=== PATIENT | male | born 1965 | race African-American/Black ===

== ENCOUNTER → 2017-03-06 | Outpatient (CLI) | payer OTHER ==
--- NOTE | 2017-03-06 11:25 | Diagnostic Imaging Report ---
PROCEDURE: MRI lumbar spine. TECHNIQUE: Multiplanar, multisequence MRI of the lumbar spine was performed without contrast. INDICATION: Back pain. The previous MRI lumbar spine exam performed on 08/23/2004, noted degenerative disc disease at L5-S1 with moderate narrowing of the neural foramen on the left. On this study the disc bulge centrally at the L5-S1 level is perhaps slightly greater than on the prior exam. The disc indents the ventral aspect of the thecal sac and narrows the AP diameter to approximately 11.6 mm. On the prior exam the AP diameter of the thecal sac measured 12.6 mm. There is still at least moderate narrowing of the neural foramina bilaterally at this level. The other intervertebral spaces are fairly well maintained; however, there is now a focal small disc protrusion to the right at L2-L3. The disc compresses the right ventral aspect of the thecal sac resulting in mild central stenosis. The disc is also in proximity to the exiting right nerve root at this level. The remainder of the lumbar spine is unremarkable for spinal stenosis or nerve root encroachment. There is no abnormal signal arising from the cord or the vertebral bodies to indicate an acute abnormality. There is no sign of a cord lesion. IMPRESSION: 1. The degenerative disc and bony disease at the L5-S1 level seen previously does not appear to have progressed. There is still no evidence for central stenosis at this level, but there is narrowing of the neural foramina bilaterally. 2. There is now a new focal disc bulge to the right at L2-L3. The disc compresses the right ventral aspect of the thecal sac resulting in mild central stenosis. The disc is also in close proximity to the exiting right nerve root. 3. The remainder of the lumbar spine is unremarkable for spinal stenosis or nerve root encroachment. 4. There is no acute bony abnormality noted, and there is no sign of a cord lesion. Dictated by: Dictated on workstation # [id number]
--- NOTE | 2017-03-06 11:28 | Diagnostic Imaging Report ---
MRI of the thoracic spine without contrast. INDICATION: Back pain. Multiplanar images utilizing both T1- and T2-weighted sequences were obtained. There are no previous MRI thoracic spine examinations available for comparison. The previous MRI lumbar spine exam of 08/23/2004, did show degenerative disc and bony disease at the T12-L1 level. On this exam there is still a disc bulge eccentric to the left at this level. The disc compresses the left ventral aspect of the thecal sac but does not produce spinal stenosis. There is mild narrowing of the neural foramen on the left however. The remainder of the thoracic spine is unremarkable for spinal stenosis or nerve root encroachment. There is no abnormal signal arising from the cord or the vertebral bodies to indicate an acute abnormality. There is no sign of a paraspinal mass. IMPRESSION: 1. The mild disc bulge to the left at T12-L1 noted previously is again evident. There is still no evidence for a central stenosis at this level although there is narrowing of the neural foramen on the left. 2. The remainder of the thoracic spine is unremarkable for spinal stenosis or nerve root encroachment. 3. There is no sign of an acute bony abnormality or of a cord lesion. Dictated by: Dictated on workstation # [id number]
== END ==
LOC: RAD 01-30 08:04
PROVIDERS: ATTEND Family Medicine
DX: M51.37 Other intervertebral disc degeneration, lumbosacral region (principal); M51.26 Other intervertebral disc displacement, lumbar region; M54.6 Pain in thoracic spine
CPT/HCPCS: 72146; 72148

== ENCOUNTER 2017-06-19 09:03 | Outpatient (RCR) | payer OTHER | END 2017-07-02 15:24 | disposition home or self-care (01) | PROVIDERS: ATTEND Family Medicine | DX: M54.42 Lumbago with sciatica, left side (principal) ==